=== PATIENT | female | born 1985 | race Caucasian/White ===

== ENCOUNTER → 2019-01-29 | Outpatient (CLI) | payer BC ==
--- NOTE | 2019-01-29 10:07 | WOMENS IMAGING REPORT ---
EXAM DESCRIPTION: U/S ABDOMEN TOTAL COMPLETED DATE/TIME: 01/29/2019 9:48 am REASON FOR STUDY: R11.0 NAUSEA R11.0 NAUSEA COMPARISON: None. TECHNIQUE: Dynamic and static grayscale images acquired of the abdomen and recorded on PACS. Additio nal selected color Doppler and spectral images recorded. Note: Study does not meet criteria for complete doppler/duplex scan LIMITATIONS: Poor acoustical windows. FINDINGS: PANCREAS: Poorly seen. No discrete masses. LIVER: 18.1 cm. Fatty infiltration. No masses. LIVER VASCULATURE: Hepatic veins are patent. Portal veins not visualized. GALLBLADDER: No stones. Normal wall thickness. No pericholecystic fluid. ULTRASOUND-DETECTED GALLEGO'S SIGN: Negative. INTRAHEPATIC DUCTS AND COMMON DUCT: CBD and intrahepatic ducts normal caliber. No filling defects. INFERIOR VENA CAVA: Normal flow. AORTA: No aneurysm. RIGHT KIDNEY: Normal size. Normal echogenicity. No solid or suspicious masses. No hydronephros is. No calcifications. LEFT KIDNEY: Normal size. Normal echogenicity. No solid or suspicious masses. No hydronephrosi s. No calcifications. SPLEEN: Normal size. No solid masses. PERITONEAL AND PLEURAL SPACES: No ascites or effusions. OTHER: No other significant finding. IMPRESSION: Somewhat limited study. Fatty enlarged liver. TECHNICAL DOCUMENTATION: JOB ID: [id number] [employer] All Rights Reserved Reading location - IP/workstation name: [email or web address]
== END ==
LOC: WI 08:55
PROVIDERS: ATTEND Internal Medicine Gastroenterology
DX: R11.0 Nausea (principal)
CPT/HCPCS: 76700

== ENCOUNTER → 2019-08-23 | Outpatient (CLI) | payer BC ==
--- NOTE | 2019-08-23 18:50 | NEURO WORKBENCH EEG REPORT ---
EEG Report Patient: Bonita Qureshi ID: [id number] Referring Doctor: Scott Ornelas MD DOS: 08/23/2019 Medications: Lisinopril, Metformin, Omeprazole, Vitamin D, vitamins, Glucosamine History This is a 34 year old right handed female with a history of hypertension, IBS, acid reflux with dizziness. This EEG was requested for dizziness. EEG Interpretation This EEG was recorded in the awake, drowsy, and sleep states. The awake EEG is characterized by a well-organized background with a well-developed and reactive posterior dominant rhythm of 11.5 Hz. The remainder of the background was characterized by a combination of low amplitude alpha with some beta frequencies. Drowsiness was characterized by slowing of the background rhythms. Vertex waves and sleep spindles were seen in the midline head regions. Photic stimulation resulted in a good driving response. There were no epileptiform abnormalities. The EKG showed an irregular rhythm. EEG Classification * EKG irregular rhythm EEG Impression This EEG is within normal limits for age. The EKG findings may require further investigation. INTERPRETING NEUROLOGIST: Coleen Rodriguez MD, [facility] Board Certified in Neurology, with special qualification in Child Neurology, and in Clinical Neurophysiology [facility]
== END ==
LOC: NEURO 08:23
PROVIDERS: ATTEND Pediatrics
DX: R42 Dizziness and giddiness (principal); R41.0 Disorientation, unspecified
CPT/HCPCS: 95819